=== PATIENT | female | born 1960 | race Caucasian/White ===

== ENCOUNTER → 2017-06-12 | Outpatient (CLI) | payer OTHER ==
[~2017-06-12] MED LIST: ADULT LOW DOSE81 MG PO; ALPRAZOLAM 0.50.5 M1 PO; ALTACE5 M1 PO; CITRACAL + BON1 EACH PO; CITRACAL + D C1 EACH PO; CRESTOR20 MG PO; FAMOTIDINE20 MG PO; FISH OIL 1,0001 EAC5 PO; FISHOIL PO; LOPRESSOR PO; LOPRESSOR25 PO; METAMUCIL PAC1 UDPK1 PO; MIRALAX255 GM PO; MULTIVITAMINS PO; PROBIOTIC FORM1 EACH PO; TOPROL XL25 MG PO; VICODIN 5-5001 EACH PO; VITAMIN D1000 UNI1 PO; VITAMIN D400 UNI1 PO; VITAMINC500 PO; XANAX 0.5 MG0.5 MG PO
== END ==
LOC: RAD 03:45
DX: Z12.31 Encounter for screening mammogram for malignant neoplasm of breast (principal)

== ENCOUNTER → 2018-06-18 | Outpatient (CLI) | payer OTHER | LOC: RAD 06-12 03:47 | DX: Z12.31 Encounter for screening mammogram for malignant neoplasm of breast (principal) ==

== ENCOUNTER 2018-07-01 20:13 | Emergency (ER) | payer OTHER ==
[~2018-07-01] VITALS: Ht 170.2 cm; Wt 65.8 kg
--- NOTE | ~2018-07-01 | EKG ---
[address] [address] ELECTROCARDIOGRAM REPORT Name: ISELA ELAM Room [id number] Admission: 07/01/18 Attend Phys: Discharge: 07/01/18 Date of : 62 Report #: [id number] THIS REPORT FOR: //name// [facility] ED Test Date: 2018-07-01 Test Time: 20:21:41 Pat Name: ISELA ELAM Department: Room: Gender: F [employer]: JACE : 1960 Requested By: Tye Shipman Order Number: [id number] MD: Beto Hugo Measurements Intervals [place] Rate: 54 P: 54 [place]: 197 QRS: 73 QRSD: 101 T: 61 QT: 405 QTc: 384 Interpretive Statements Sinus bradycardia Otherwise no significant abnormality Compared to ECG 10/23/2015 19:55:43 No significant change was found Electronically Signed On 07-02-2018 7:46:59 [employer] by Beto Hugo [email or web address] <ELECTRONICALLY SIGNED> By: Beto Hugo MD, [facility] 07/02/18 0746 20 20 Beto Hugo MD, FACC /EPI
[2018-07-01] MEDS ORDERED: ZETIA10 MG PO (20:38)
[2018-07-01] MEDS ORDERED: LISINOPRIL5 MG PO (20:38)
[2018-07-01 20:53] LABS: ABSOLUTE NEUTROPHILS 5.9 thou/uL (1.4-8.2); EOSINOPHILS 1.8 % (0.0-3.0); HEMOGLOBIN 14.1 gm/dL (12.0-15.0); LYMPHOCYTES 34.1 % (24.0-44.0); MCH 33.3 pg (26.0-34.0); MCHC 35.3 g/dL (28.0-37.0); MCV 94.3 fL (80.0-100.0); MONOCYTES 9.9 % (1.0-8.0); PLATELET COUNT 201 thou/uL (150-400); POLYS 53.2 % (36.0-66.0); RBC 4.24 mil/uL (4.20-5.00); RDW 12.2 % (10.5-14.5); WBC 11.2 thou/uL (4.0-11.0)
[2018-07-01 21:12] LABS: ANION GAP 11 mmol/L (7-16); BUN 27 mg/dL (7-18); CALCIUM 9.5 mg/dL (8.5-10.1); CHLORIDE 103 mmol/L (98-107); CO2 25 mmol/L (21-32); CREATININE 1.2 mg/dL (0.6-1.0); GLUCOSE 99 mg/dL (74-106); POTASSIUM 3.7 mmol/L (3.5-5.1); SODIUM 139 mmol/L (136-145)
[2018-07-01 21:16] LABS: ALBUMIN 4.2 g/dL (3.4-5.0); MAGNESIUM 2.2 mg/dL (1.8-2.4); SGOT 28 U/L (15-37); SGPT 33 U/L (30-65); TOTAL BILIRUBIN 0.4 mg/dL (<0.1-1.0); TOTAL PROTEIN 8.3 g/dL (6.4-8.2); TROPONIN-I <0.06 ng/mL (<0.06)
[2018-07-01] MEDS ORDERED: NAPROSYN500 MG PO (21:22)
[2018-07-01 21:39] VITALS: BP 144/66
== END 2018-07-01 21:45 | disposition home or self-care (01) ==
LOC: ER 20:13
PROVIDERS: Emergency Medicine
DX: R07.89 Other chest pain (principal); M79.7 Fibromyalgia; R42 Dizziness and giddiness; I10 Essential (primary) hypertension; Z88.0 Allergy status to penicillin; Z88.1 Allergy status to other antibiotic agents; Z88.2 Allergy status to sulfonamides; Z88.8 Allergy status to other drugs, medicaments and biological substances; Z87.891 Personal history of nicotine dependence

== ENCOUNTER → 2019-06-18 | Outpatient (CLI) | payer OTHER ==
[~2019-06-18] MED LIST changes: +LISINOPRIL5 MG PO; +NAPROSYN500 MG PO; +ZETIA10 MG PO
== END ==
LOC: RAD 02:50
DX: Z12.31 Encounter for screening mammogram for malignant neoplasm of breast (principal)

== ENCOUNTER → 2019-12-31 | Outpatient (CLI) | payer OTHER | LOC: SJCVCIMAG 09:36 | DX: I65.23 Occlusion and stenosis of bilateral carotid arteries (principal); I10 Essential (primary) hypertension; E78.5 Hyperlipidemia, unspecified; I73.9 Peripheral vascular disease, unspecified; Z87.891 Personal history of nicotine dependence ==

== ENCOUNTER → 2020-07-21 | Outpatient (CLI) | payer OTHER | LOC: BC 07-18 08:01 | PROVIDERS: ATTEND Obstetrics & Gynecology | DX: Z12.31 Encounter for screening mammogram for malignant neoplasm of breast (principal) ==

== ENCOUNTER → 2021-06-14 | Outpatient (CLI) | payer OTHER | LOC: RAD 12:31 | PROVIDERS: ATTEND Internal Medicine Pulmonary Disease | DX: R06.00 Dyspnea, unspecified (principal) ==

== ENCOUNTER → 2021-07-21 | Outpatient (CLI) | payer OTHER | LOC: RAD 10:03 | PROVIDERS: ATTEND Obstetrics & Gynecology | DX: Z12.31 Encounter for screening mammogram for malignant neoplasm of breast (principal) ==

== ENCOUNTER → 2021-07-24 | Outpatient (CLI) | payer OTHER | LOC: ULTRA 13:18 | PROVIDERS: ATTEND Obstetrics & Gynecology | DX: R92.2 Inconclusive mammogram (principal); R92.8 Other abnormal and inconclusive findings on diagnostic imaging of breast ==

== ENCOUNTER → 2021-09-20 | Outpatient (CLI) | payer OTHER | LOC: SJCVCIMAG 07:16 | PROVIDERS: ATTEND Internal Medicine Cardiovascular Disease | DX: I08.1 Rheumatic disorders of both mitral and tricuspid valves (principal); R06.00 Dyspnea, unspecified; E78.5 Hyperlipidemia, unspecified; I10 Essential (primary) hypertension; R93.1 Abnormal findings on diagnostic imaging of heart and coronary circulation; R53.83 Other fatigue ==